=== PATIENT | male | born 1985 | race Caucasian/White ===

== ENCOUNTER 2017-05-07 04:55 | Emergency (ER) | payer OTHER ==
[~2017-05-07] VITALS: Ht 188 cm; Wt 112.5 kg
[~2017-05-07 04:55] MED LIST: ESCI10TA17 PO
[2017-05-07 04:58] VITALS: TEMP 37.4; Ht 188 cm; Wt 112.5 kg
[2017-05-07] MEDS ORDERED: ONDANSETRON INJ 2 MG/ML 2 ML VIAL IV STA (05:10)
[2017-05-07] MEDS ORDERED: SODIUM CHLORIDE 0.9% 1000ML 2,000 ML IV STA (05:10)
[2017-05-07] MEDS ORDERED: ACETAMINOPHEN IV 1,000 MG in EMPTY BAG 0 ML IV STA (05:10)
[2017-05-07] MEDS ORDERED: KETOROLAC TROMETHAMINE 30 MG/ML VIAL IV STA (05:10)
[2017-05-07] MEDS ORDERED: DiphenhydrAMINE HCL 50 MG/ML VIAL IV STA (05:10)
--- NOTE | 2017-05-07 05:17 | EMERGENCY ROOM VISIT NOTE ---
History First contact with patient: 05:05 Chief Complaint: FEVER Stated Complaint: FEVER AND FLU LIKE SYMPTOMS,DIZZINESS History of Present Illness The patient is a 32 year old male who presents to the Emergency Room for evaluation of flu-like illness. Patient arrives after 24 hours of sore throat, body aches, fevers, chills, headache, nausea, vomiting, and generalized fatigue. Primarily is sore throat. Denies cough, shortness of breath, chest pain, syncope, urinary/bowel issues, abdominal pain, rash, etc. Nothing makes better nor worse. Unable to keep down any fluids over last 12 hours. No recent abx. Used Motrin earlier in the evening. No sick contacts though has young daughter. No medical issues. Review of Systems See HPI for pertinent positives & negatives. A total of 10 systems reviewed and were otherwise negative. Past Medical/Surgical History Surgical Problems: (1) S/P tonsillectomy Family History Patient reports no known family medical history. Social History Smoking Status: Never Smoker Marital Status: Housing Status: lives with family Occupation Status: employed Current/Historical Medications Scheduled Escitalopram (Lexapro), 10 MG PO DAILY Ondasetron Odt (Zofran Odt), 4-8 MG SL Q6H Allergies Coded Allergies: No Known Allergies (Unverified , 09/18/16) Physical Exam Vital Signs Date Time Temp Pulse Resp B/P (MAP) Pulse Ox O2 Delivery O2 Flow Rate FiO2 05/07/17 06:28 94 18 135/88 93 Room Air 05/07/17 04:58 37.4 111 20 148/93 95 Room Air Physical Exam GENERAL: Patient is tired appearing and in mild distress. Dehydrated appearing. HEENT: No acute trauma, normocephalic atraumatic, mucous membranes DRY, no nasal congestion, no scleral icterus. THROAT: Mild posterior pharyngeal erythema. No exudate. No tonsillar swelling/ shift NECK: No stridor, no adenopathy, no meningismus, trachea is midline. LUNGS: No dyspnea. Clear to auscultation and equal bilaterally. No wheeze, no rhonchi. HEART: Tachycardic. No murmurs, rubs, gallops appreciated. ABDOMEN: Soft, nontender, bowel sounds positive, no masses appreciated, no peritonitis. BACK: No midline tenderness, no CVA tenderness EXTREMITIES: Normal motion all extremities, no cyanosis, no edema. NEUROLOGIC: Alert and oriented, no acute motor or sensory deficits, no focal weakness, cranial nerves grossly intact. SKIN: No rash, no jaundice, no diaphoresis. Medical Decision & Procedures Laboratory Results 05/07/17 05:20 Red Blood Count 4.99, Mean Corpuscular Volume 86.2, Mean Corpuscular Hemoglobin 30.9, Mean Corpuscular Hemoglobin Concent 35.8, Mean Platelet Volume 9.6, Neutrophils (%) (Auto) 85.2, Lymphocytes (%) (Auto) 7.9, Monocytes (%) (Auto) 5.9, Eosinophils (%) (Auto) 0.4, Basophils (%) (Auto) 0.2, Neutrophils # (Auto) 8.46, Lymphocytes # (Auto) 0.79, Monocytes # (Auto) 0.59, Eosinophils # (Auto) 0.04, Basophils # (Auto) 0.02 05/07/17 05:20 Test 05/07/17 05:20 White Blood Count 9.94 K/uL (4.8-10.8) Red Blood Count 4.99 M/uL (4.7-6.1) Hemoglobin 15.4 g/dL (14.0-18.0) Hematocrit 43.0 % (42-52) Mean Corpuscular Volume 86.2 fL (80-100) Mean Corpuscular Hemoglobin 30.9 pg (25-34) Mean Corpuscular Hemoglobin Concent 35.8 g/dl (32-36) Platelet Count 215 K/uL (130-400) Mean Platelet Volume 9.6 fL (7.4-10.4) Neutrophils (%) (Auto) 85.2 % Lymphocytes (%) (Auto) 7.9 % Monocytes (%) (Auto) 5.9 % Eosinophils (%) (Auto) 0.4 % Basophils (%) (Auto) 0.2 % Neutrophils # (Auto) 8.46 K/uL (1.4-6.5) Lymphocytes # (Auto) 0.79 K/uL (1.2-3.4) Monocytes # (Auto) 0.59 K/uL (0.11-0.59) Eosinophils # (Auto) 0.04 K/uL (0-0.5) Basophils # (Auto) 0.02 K/uL (0-0.2) RDW Standard Deviation 38.7 fL (36.4-46.3) RDW Coefficient of Variation 12.2 % (11.5-14.5) Immature Granulocyte % (Auto) 0.4 % Immature Granulocyte # (Auto) 0.04 K/uL (0.00-0.02) Anion Gap 7.0 mmol/L (3-11) Est Creatinine Clear Calc Drug Dose 131.0 ml/min Estimated GFR () 103.9 Estimated GFR (Non- 89.6 BUN/Creatinine Ratio 9.7 (10-20) Calcium Level 8.9 mg/dl (8.5-10.1) Medications Administered Medications (Trade) Dose Ordered Sig/Randall Route Start Time Stop Time Status Last Admin Dose Admin Ketorolac Tromethamine (Toradol Inj) 30 mg NOW STAT IV 05/07/17 05:10 05/07/17 05:11 DC 05/07/17 05:27 30 MG Ondansetron HCl (Zofran Inj) 4 mg NOW STAT IV 05/07/17 05:10 05/07/17 05:12 DC 05/07/17 05:26 4 MG Diphenhydramine HCl (Benadryl Inj) 50 mg NOW STAT IV 05/07/17 05:10 05/07/17 05:12 DC 05/07/17 05:27 50 MG Sodium Chloride 2,000 ml @ 999 mls/hr Q2H1M STAT IV 05/07/17 05:10 05/07/17 07:10 05/07/17 05:27 999 MLS/HR Acetaminophen (Ofirmev Iv) 1,000 mg STK-MED ONCE IV 05/07/17 05:22 05/07/17 05:23 DC 05/07/17 05:28 1,000 MG ED Course 5:45a: Re-eval. Feeling much improved. Mild continued dizziness but headache, nausea, aches gone. Medical Decision Differential: Viral, Pharyngitis, Cellulitis, Pneumonia, Influenza, Meningitis, Sepsis, Bacteremia, amongst other pathologies entertained. 32 yr old male with viral illness with multiple symptoms similar to viral illness currently in community (in fact several physicians have had similar in last week). No meningitis by exam and he is not septic. Symptoms vastly improved with above including fluids. Labs unremarkable, afebrile with no nuchal rigidity, I do not feel LP is indicated. Reviewed rest, fluids and if worsening RTED. Impression Primary Impression: Dehydration Additional Impressions: Vomiting Influenza-like illness Departure Information Dispostion Home / Self-Care Condition GOOD Prescriptions Ondasetron Odt (ZOFRAN ODT) 4 Mg Tab 4-8 MG SL Q6H for Nausea, #20 TAB Prov: Joe Martell M.D. 05/07/17 Patient Instructions ED Dehydration, My [facility] Problem Qualifiers Additional Impressions:
[2017-05-07] MEDS ORDERED: ACETAMINOPHEN 1000 MG/100 ML IV IV ONE (05:22)
[2017-05-07 05:32] LABS: BASO % 0.2 %; BASO ABS # 0.02 K/uL (0-0.2); COMPLETE YES; EOS % 0.4 %; IG% 0.4 %; LYMPH % 7.9 %; LYMPH ABS # 0.79 K/uL (1.2-3.4); MEAN CELL VOLUME 86.2 fL (80-100); MEAN CORPUSCULAR HEMOGLOBIN 30.9 pg (25-34); MEAN CORPUSCULAR HGB CONC 35.8 g/dl (32-36); MEAN PLATELET VOLUME 9.6 fL (7.4-10.4); MONO % 5.9 %; NEUT % 85.2 %; PLATELET COUNT 215 K/uL (130-400); RED BLOOD COUNT 4.99 M/uL (4.7-6.1); WHITE BLOOD COUNT 9.94 K/uL (4.8-10.8)
[2017-05-07 05:48] LABS: BUN/CREATININE RATIO 9.7 (10-20); CALCIUM 8.9 mg/dl (8.5-10.1); CREATININE 1.1 mg/dl (0.60-1.40); POTASSIUM 3.8 mmol/L (3.5-5.1)
[2017-05-07] MEDS ORDERED: ONDA4TAB10 SL (06:18)
[2017-05-07 06:28] VITALS: BP 135/88; PULSE 94; O2SAT 93
== END 2017-05-07 06:43 | disposition home or self-care (01) ==
LOC: C.EDB 04:56 → C.EDA 06:43
DX: E86.0 Dehydration (principal); R11.0 Nausea; R68.89 Other general symptoms and signs; Z79.899 Other long term (current) drug therapy

== ENCOUNTER 2018-02-02 10:02 | Emergency (ER) | payer OTHER ==
[~2018-02-02] VITALS: Ht 188 cm; Wt 110.4 kg
[2018-02-02 10:05] VITALS: TEMP 37.7; Ht 188 cm; Wt 110.4 kg
[2018-02-02] MEDS ORDERED: ACET-1256 PO (10:20)
[2018-02-02] MEDS ORDERED: IBUP-1050 PO (10:20)
[2018-02-02] MEDS ORDERED: FENO48TA9 PO (10:22)
[2018-02-02] MEDS ORDERED: DIAZEPAM INJ 5 MG/ML 2 ML CARP IV STA (10:40)
[2018-02-02] MEDS ORDERED: SODIUM CHLORIDE 0.9% 1000ML 1,000 ML IV STA ×2 (10:40→11:32)
[2018-02-02] MEDS ORDERED: ONDANSETRON INJ 2 MG/ML 2 ML VIAL IV STA (10:40)
[2018-02-02 11:27] LABS: BASO % 0.1 %; BASO ABS # 0.01 K/uL (0-0.2); HEMATOCRIT 43.8 % (42-52); HEMOGLOBIN 15.9 g/dL (14.0-18.0); IG# 0.04 K/uL (0.00-0.02); LYMPH % 6.6 %; LYMPH ABS # 0.81 K/uL (1.2-3.4); MEAN CELL VOLUME 85.5 fL (80-100); MEAN CORPUSCULAR HEMOGLOBIN 31.1 pg (25-34); MEAN CORPUSCULAR HGB CONC 36.3 g/dl (32-36); MONO % 3.5 %; MONO ABS # 0.43 K/uL (0.11-0.59); NEUT % 89.5 %; PLATELET COUNT 207 K/uL (130-400); RED CELL DISTRIBUTION WIDTH CV 12.5 % (11.5-14.5); RED CELL DISTRIBUTION WIDTH SD 39.2 fL (36.4-46.3); WHITE BLOOD COUNT 12.29 K/uL (4.8-10.8)
[2018-02-02] MEDS ORDERED: MECLIZINE HCL 25 MG TAB PO STA (11:31)
[2018-02-02 11:44] LABS: ALBUMIN 4.1 gm/dl (3.4-5.0); CALCIUM 9.2 mg/dl (8.5-10.1); CREATININE 1.27 mg/dl (0.60-1.40); POTASSIUM 3.8 mmol/L (3.5-5.1)
[2018-02-02 11:46] LABS: TOTAL PROTEIN 7.7 gm/dl (6.4-8.2)
--- NOTE | 2018-02-02 12:03 | DIAGNOSTIC IMAGING REPORT ---
CT HEAD WITHOUT CONTRAST (CT) CLINICAL HISTORY: Dizziness, nausea, vomiting COMPARISON STUDY: No previous studies for comparison. TECHNIQUE: Axial CT of the brain is performed from the vertex to the skull base. IV contrast was not administered for this examination. A dose lowering technique was utilized adhering to the principles of ALARA. CT DOSE: 614.27 mGy.cm FINDINGS: No intra or extra-axial mass lesions are visualized. There is no CT evidence of acute cortical infarction. There is no evidence of midline shift. There is no acute hemorrhage. No calvarial fractures are visualized. There is no evidence of pathologic ventricular dilatation. There is no evidence of acute sinusitis IMPRESSION: Normal noncontrast head CT. Electronically signed by: John Marcum M.D. 02/02/2018 12:02 PM Dictated Date/Time: 02/02/2018 12:01 PM
--- NOTE | 2018-02-02 12:57 | DIAGNOSTIC IMAGING REPORT ---
ABDOMEN 2VIEW W/PA CHEST RTN CLINICAL HISTORY: Nausea and vomiting COMPARISON STUDY: No previous studies for comparison. FINDINGS: The erect chest reveals no free air. There is a nonspecific 15 mm nodular opacity at the left lung base. Given the young age of the patient, this is likely atelectatic or inflammatory. Short-term radiographic follow-up is recommended. There are no abnormally dilated loops of large or small bowel. There are no transition zones indicate bowel obstruction. IMPRESSION: 1. No evidence of bowel obstruction. No evidence of free air 2. Nonspecific 15 mm nodular airspace at the left lung base . Given the young age of the patient, this is likely atelectatic or inflammatory. Short-term radiographic follow-up is recommended. Electronically signed by: John Marcum M.D. 02/02/2018 12:56 PM Dictated Date/Time: 02/02/2018 12:54 PM
[2018-02-02] MEDS ORDERED: ONDA4TAB10 SL (13:22)
--- NOTE | 2018-02-02 13:32 | EMERGENCY ROOM VISIT NOTE ---
History Report prepared by Rinku: Ronald Malik Under the Supervision of: Dr. Navin Gaming M.D. First contact with patient: 10:32 Chief Complaint: VOMITING Stated Complaint: NAUSEA AND VOMITING History of Present Illness The patient is a 32 year old male who presents to the Emergency Room with complaints of intermittent vomiting beginning last night. He states that his symptoms began with a headache and dizziness last night. He estimates that he is vomiting about once every hour. The patient took left over Meclizine for his headache and dizziness which has resolved the headache, and improved the dizziness. He has a history of frequent ear "problems". His current dizziness is worsened with movement. The patient denies abdominal pain or diarrhea. He notes that he ate take-out recently from [employer], but otherwise denies eating anything abnormal recently. Source of History: patient Onset: Last night Symptom Intensity: one per hour Quality: other (vomiting) Timing: intermittent Associated Symptoms: + headache (resolved), No abdominal pain, No diarrhea Note: Additional symptoms: dizziness. Review of Systems See HPI for pertinent positives & negatives. A total of 10 systems reviewed and were otherwise negative. Past Medical & Surgical Surgical Problems: (1) S/P tonsillectomy Family History Patient reports no known family medical history. Social History Smoking Status: Never Smoker Marital Status: Housing Status: lives with family Occupation Status: employed Current/Historical Medications Scheduled Acetaminophen (Tylenol), 1,000 MG PO UD Escitalopram (Lexapro), 10 MG PO HS Fenofibrate (Tricor), 48 MG PO HS Ibuprofen (Advil), 200 MG PO UD Ondasetron Odt (Zofran Odt), 4 MG SL Q6H Allergies Coded Allergies: No Known Allergies (Unverified , 02/02/18) Physical Exam Vital Signs Date Time Temp Pulse Resp B/P (MAP) Pulse Ox O2 Delivery O2 Flow Rate FiO2 02/02/18 13:39 125 20 102/67 97 02/02/18 13:01 119 02/02/18 12:02 123 20 123/80 95 Room Air 02/02/18 11:38 116 20 121/72 96 Room Air 02/02/18 10:05 37.7 130 18 119/78 97 Room Air Physical Exam GENERAL: Awake, alert, well-appearing, in no acute distress. No evidence of meningitis or encephalitis on exam. HENT: Normocephalic, atraumatic. Oropharynx unremarkable. EYES: Normal conjunctiva. Sclera non-icteric. NECK: Supple. No nuchal rigidity. FROM. No JVD. RESPIRATORY: Clear to auscultation. CARDIAC: Regular rate, normal rhythm. Extremities warm and well perfused. Pulses equal. ABDOMEN: Soft, non-distended. No tenderness to palpation. No rebound or guarding. No masses. RECTAL: Deferred. MUSCULOSKELETAL: Chest examination reveals no tenderness. The back is symmetrical on inspection without obvious abnormality. There is no CVA tenderness to palpation. No joint edema. LOWER EXTREMITIES: Calves are equal size bilaterally and non-tender. No edema. No discoloration. NEURO: Normal sensorium. No sensory or motor deficits noted. SKIN: No rash or jaundice noted. Medical Decision & Procedures ER Provider Diagnostic Interpretation: Radiology results as stated below per my review and radiologist interpretation: CT HEAD WITHOUT CONTRAST (CT) FINDINGS: No intra or extra-axial mass lesions are visualized. There is no CT evidence of acute cortical infarction. There is no evidence of midline shift. There is no acute hemorrhage. No calvarial fractures are visualized. There is no evidence of pathologic ventricular dilatation. There is no evidence of acute sinusitis IMPRESSION: Normal noncontrast head CT. Electronically signed by: John Marcum M.D. 02/02/2018 12:02 PM ABDOMEN 2VIEW W/PA CHEST RTN FINDINGS: The erect chest reveals no free air. There is a nonspecific 15 mm nodular opacity at the left lung base. Given the young age of the patient, this is likely atelectatic or inflammatory. Short-term radiographic follow-up is recommended. There are no abnormally dilated loops of large or small bowel. There are no transition zones indicate bowel obstruction. IMPRESSION: 1. No evidence of bowel obstruction. No evidence of free air 2. Nonspecific 15 mm nodular airspace at the left lung base . Given the young age of the patient, this is likely atelectatic or inflammatory. Short-term radiographic follow-up is recommended. Electronically signed by: John Marcum M.D. 02/02/2018 12:56 PM Laboratory Results 02/02/18 11:10 Red Blood Count 5.12, Mean Corpuscular Volume 85.5, Mean Corpuscular Hemoglobin 31.1, Mean Corpuscular Hemoglobin Concent 36.3, Mean Platelet Volume 10.0, Neutrophils (%) (Auto) 89.5, Lymphocytes (%) (Auto) 6.6, Monocytes (%) (Auto) 3.5, Eosinophils (%) (Auto) 0.0, Basophils (%) (Auto) 0.1, Neutrophils # (Auto) 11.00, Lymphocytes # (Auto) 0.81, Monocytes # (Auto) 0.43, Eosinophils # (Auto) 0.00, Basophils # (Auto) 0.01 02/02/18 11:10 Test 02/02/18 11:10 02/02/18 11:15 White Blood Count 12.29 K/uL (4.8-10.8) Red Blood Count 5.12 M/uL (4.7-6.1) Hemoglobin 15.9 g/dL (14.0-18.0) Hematocrit 43.8 % (42-52) Mean Corpuscular Volume 85.5 fL (80-100) Mean Corpuscular Hemoglobin 31.1 pg (25-34) Mean Corpuscular Hemoglobin Concent 36.3 g/dl (32-36) Platelet Count 207 K/uL (130-400) Mean Platelet Volume 10.0 fL (7.4-10.4) Neutrophils (%) (Auto) 89.5 % Lymphocytes (%) (Auto) 6.6 % Monocytes (%) (Auto) 3.5 % Eosinophils (%) (Auto) 0.0 % Basophils (%) (Auto) 0.1 % Neutrophils # (Auto) 11.00 K/uL (1.4-6.5) Lymphocytes # (Auto) 0.81 K/uL (1.2-3.4) Monocytes # (Auto) 0.43 K/uL (0.11-0.59) Eosinophils # (Auto) 0.00 K/uL (0-0.5) Basophils # (Auto) 0.01 K/uL (0-0.2) RDW Standard Deviation 39.2 fL (36.4-46.3) RDW Coefficient of Variation 12.5 % (11.5-14.5) Immature Granulocyte % (Auto) 0.3 % Immature Granulocyte # (Auto) 0.04 K/uL (0.00-0.02) Anion Gap 8.0 mmol/L (3-11) Est Creatinine Clear Calc Drug Dose 112.5 ml/min Estimated GFR () 87.3 Estimated GFR (Non- 75.3 BUN/Creatinine Ratio 10.1 (10-20) Calcium Level 9.2 mg/dl (8.5-10.1) Total Bilirubin 1.0 mg/dl (0.2-1) Direct Bilirubin 0.1 mg/dl (0-0.2) Aspartate Amino Transf (AST/SGOT) 16 U/L (15-37) Alanine Aminotransferase (ALT/SGPT) 38 U/L (12-78) Alkaline Phosphatase 80 U/L (45-117) Total Protein 7.7 gm/dl (6.4-8.2) Albumin 4.1 gm/dl (3.4-5.0) Lipase 115 U/L (73-393) Urine Color YELLOW Urine Appearance CLEAR (CLEAR) Urine pH 8.5 (4.5-7.5) Urine Specific War 1.024 (1.000-1.030) Urine Protein NEG (NEG) Urine Glucose (UA) NEG (NEG) Urine Ketones NEG (NEG) Urine Occult Blood NEG (NEG) Urine Nitrite NEG (NEG) Urine Bilirubin NEG (NEG) Urine Urobilinogen NEG (NEG) Urine Leukocyte Esterase NEG (NEG) Labs reviewed by ED physician. Medications Administered Medications (Trade) Dose Ordered Sig/Randall Route Start Time Stop Time Status Last Admin Dose Admin Sodium Chloride 1,000 ml @ 999 mls/hr Q1H1M STAT IV 02/02/18 10:40 02/02/18 11:40 DC 02/02/18 11:00 999 MLS/HR Ondansetron HCl (Zofran Inj) 4 mg NOW STAT IV 02/02/18 10:40 02/02/18 10:43 DC 02/02/18 11:34 4 MG Meclizine HCl (Antivert Tab) 25 mg NOW STAT PO 02/02/18 11:31 02/02/18 11:32 DC 02/02/18 11:37 25 MG Sodium Chloride 1,000 ml @ 999 mls/hr Q1H1M STAT IV 02/02/18 11:32 02/02/18 12:32 DC 02/02/18 11:36 999 MLS/HR ECG Per My Interpretation Indication: vomiting Rate (beats per minute): 126 Rhythm: sinus tachycardia Findings: other (No ST elevations or depressions. Normal axis. ) ED Course 1033: Past medical records reviewed. The patient was evaluated in room B9. A complete history and physical examination was performed. 1040: Ordered Zofran Inj 4 mg IV, Valium Inj 5 mg IV, Sodium Chloride 1000 ml @ 999 mls/hr IV. 1130: I checked on the patient. He is resting comfortably. 1131: Ordered Antivert Tab 25 mg PO, Sodium Chloride 1000 ml @ 999 mls/hr IV. 1325: Upon reexamination the patient is resting comfortably. I discussed results and treatment plan with the patient. He verbalizes agreement and understanding. The patient is ready for discharge. Medical Decision Differential diagnosis: Etiologies such as benign positional vertigo, dehydration, hypovolemia, anemia, tumor, infection, hypoglycemia, electrolyte abnormalities, cardiac sources, intracerebral event, toxicologic, neurologic, as well as others were entertained. This is a 32-year-old male who presents emergency department complaining of vertigo along with vomiting. The patient has a history of vertigo in the past. He is requesting meclizine here in the emergency department along with Zofran. Because of his high heart rate he was given 2 L normal saline bolus. He was sent for CAT scan of the head however this did not show any acute process. The patient's heart rate gradually did come down. I believe he is suffering from vertigo. He was given Zofran for nausea and encouraged to follow -up with his primary care physician. Patient was in agreement with the treatment plan. Medication Reconcilliation Current Medication List: was personally reviewed by me Blood Pressure Screening Patient's blood pressure: Normal blood pressure Blood pressure disposition: Did not require urgent referral Impression Primary Impression: Vertigo Additional Impression: Vomiting Scribe Attestation The scribe's documentation has been prepared under my direction and personally reviewed by me in its entirety. I confirm that the note above accurately reflects all work, treatment, procedures, and medical decision making performed by me. Departure Information Dispostion Home / Self-Care Prescriptions Ondasetron Odt (ZOFRAN ODT) 4 Mg Tab 4 MG SL Q6H for Nausea, #6 TAB Prov: Navin Gaming MD 02/02/18 Referrals No Doctor, Assigned (PCP) Forms HOME CARE DOCUMENTATION FORM, IMPORTANT VISIT INFORMATION Patient Instructions ED Nausea Vomiting, ED Vertigo Unspecified, My [facility], Nausea Vomit Control Additional Instructions You have been examined and treated today on an emergency basis only. This is not a substitute for, or an effort to provide, complete comprehensive medical care. It is impossible to recognize and treat all injuries or illnesses in a single emergency department visit. It is therefore important that you follow up closely with your PCP. Call as soon as possible for an appointment. Thank you for your time and consideration. I look forward to speaking with you again soon. Please don't hesitate to call us if you have any questions. Problem Qualifiers Additional Impression: Vomiting Vomiting type: unspecified Vomiting Intractability: unspecified Nausea presence: unspecified Qualified Codes: R11.10 - Vomiting, unspecified
[2018-02-02 13:39] VITALS: BP 102/67; PULSE 125; O2SAT 97
== END 2018-02-02 13:38 | disposition home or self-care (01) ==
LOC: C.EDB 10:03
DX: R42 Dizziness and giddiness (principal); R11.10 Vomiting, unspecified; Z90.89 Acquired absence of other organs